=== PATIENT | female | born 2000 | race Caucasian/White ===

== ENCOUNTER 2025-05-01 06:23 | Inpatient (IN) | payer OTHER ==
[~2025-05-01] VITALS: Ht 154.9 cm; Wt 3.2 kg
[2025-05-01] MEDS ORDERED: OXYTOCIN 500 ML IV SCH (08:00)
[2025-05-01] MEDS ORDERED: PRENATABS RX T1 EACH PO (08:24)
[2025-05-01 08:37] VITALS: BP 130/78
[2025-05-01 09:44] LABS: BASO % 0.2 % (0.1-1.2); EOS # 0.04 (0.04-0.54); EOS % 0.4 % (0.7-7.0); LYMPH # 1.84 (1.18-3.74); LYMPH % 20.4 % (19.3-53.1); MEAN PLATELET VOLUME 12.70 fl (9.4-12.4); MONO # 0.79 (0.24-0.82); MONO % 8.8 % (4.7-12.5); NEUT # 6.27 (1.56-6.13); NEUT % 69.8 % (34.0-71.1); RED CELL DISTRIBUTION WIDTH 14.6 % (11.6-14.4)
[2025-05-01 10:09] LABS: URINE APPEARANCE Clear; URINE BILIRRUBIN Negative (NEGATIVE); URINE BLOOD Negative; URINE COLOR Yellow; URINE GLUCOSE Negative (NEGATIVE); URINE KETONE Negative (NEGATIVE); URINE LEUKOCYTE Moderate; URINE NITRATE Negative; URINE PROTEIN Negative (NEGATIVE); URINE UROBILINOGEN 1.0 E.U./dl
[2025-05-01 10:12] LABS: URINE EPITHELIAL CELLS 48.7 uL (0.0-38.8); URINE RBC 7.9 uL (0.0-20.8); URINE WBC 132.4 uL (0.0-23.2)
[2025-05-01 10:14] LABS: INR < 0.93
[2025-05-01 10:24] LABS: URINE CAST 0.28 uL (0.0-1.40)
[2025-05-01 10:37] LABS: ALT/SGPT 28.0 U/L (12-78); AST/SGOT 26.0 U/L (15-37); BILIRUBIN TOTAL 0.22 mg/dL (0.3-1.2); BUN CREA RATIO 13.0 (7.0-25.0); CREATININE SERUM 0.61 mg/dL (0.55-1.02); GFR 118.56; GLOBULINA 3.6 G/DL (2.4-3.5); GLUCOSE FASTING 73.0 mg/dL (65-100); OSMOLALITY SERUM 271.0 MOSM/KG (275-295)
[2025-05-01 12:50] VITALS: BP 112/51
[2025-05-01 15:08] VITALS: BP 102/56
[2025-05-01 19:32] VITALS: BP 122/66
[2025-05-01] MEDS ORDERED: CEFAZOLIN SODIUM 2,000 MG in 0.9 % SODIUM CHLORIDE 100 ML IV SCH (21:00)
[2025-05-01 23:11] VITALS: BP 125/71
[2025-05-02] MEDS ORDERED: OXYTOCIN 10 UNITS/ML VIAL ONE ×2 (03:12→09:48)
[2025-05-02] MEDS ORDERED: ERYTHROMYCIN BASE OPHT 1GM EACH TUBE OP ONE (03:12)
[2025-05-02] MEDS ORDERED: CEFAZOLIN SODIUM 1,000 MG VIAL IV SCH (03:30)
[2025-05-02] MEDS ORDERED: METHYLERGONOVINE MALEATE 0.2 MG/ML AMPUL ONE (04:49)
[2025-05-02] MEDS ORDERED: OXYTOCIN 1,000 ML IV SCH (05:30)
[2025-05-02] MEDS ORDERED: MORPHINE SULFATE 4 MG/ML CARTRIDGE IV PRN (05:30)
[2025-05-02] MEDS ORDERED: SIMETHICONE 125 MG CAPSULE PO SCH (09:00)
[2025-05-02 11:31] VITALS: BP 96/57
[2025-05-02 12:23] LABS: BASO % 0.1 % (0.1-1.2); EOS # 0.00 (0.04-0.54); EOS % 0.0 % (0.7-7.0); LYMPH # 1.97 (1.18-3.74); LYMPH % 12.3 % (19.3-53.1); MEAN PLATELET VOLUME 11.70 fl (9.4-12.4); MONO # 1.02 (0.24-0.82); MONO % 6.4 % (4.7-12.5); NEUT # 12.94 (1.56-6.13); NEUT % 80.8 % (34.0-71.1); RED CELL DISTRIBUTION WIDTH 14.9 % (11.6-14.4)
[2025-05-02 16:47] VITALS: BP 112/79
[2025-05-02] MEDS ORDERED: NAPROXEN 500 MG TABLET PO SCH (18:39)
[2025-05-02] MEDS ORDERED: ACETAMINOPHEN WITH CODEINE 1 UDTAB TABLET PO PRN (18:45)
[2025-05-03 00:51] VITALS: BP 103/70
[2025-05-03 09:07] VITALS: BP 109/75
[2025-05-03 19:00] VITALS: BP 90/54
[2025-05-03 23:34] VITALS: BP 106/68
[2025-05-04 06:15] VITALS: BP 108/74
[2025-05-04 08:38] VITALS: BP 105/71
[2025-05-04 16:00] VITALS: BP 105/75
[2025-05-04 23:20] VITALS: BP 108/70
[2025-05-05 05:09] VITALS: BP 96/62
[2025-05-05] MEDS ORDERED: NAPROXEN500 MG PO (08:38)
[2025-05-05 09:43] VITALS: BP 105/70
== END 2025-05-05 16:27 | disposition home or self-care (01) | DRG 788 ==
LOC: LDR 06:23 → OB/GYN 05-02 05:59
PROVIDERS: ADMIT Obstetrics & Gynecology; ATTEND Obstetrics & Gynecology
PROC: 4A1HXCZ Monitoring of Products of Conception, Cardiac Rate, External Approach (ICD-10-PCS; 2025-05-01)
PROC: 10D00Z1 Extraction of Products of Conception, Low, Open Approach (ICD-10-PCS; principal; 2025-05-02 07:00)
DX: O82 Encounter for cesarean delivery without indication (principal); O62.1 Secondary uterine inertia; Z3A.39 39 weeks gestation of pregnancy; Z37.0 Single live birth